=== PATIENT | male | born 1945 | race Hispanic/Latino ===

== ENCOUNTER 2024-06-04 12:32 | Outpatient (CLI) | payer MEDICARE, MEDICAID | END 2024-06-04 12:33 | disposition home or self-care (01) | LOC: CSHWCC 12:32 | PROVIDERS: ATTEND Nurse Practitioner Family | DX: T81.31XD Disruption of external operation (surgical) wound, not elsewhere classified, subsequent encounter (principal); I50.22 Chronic systolic (congestive) heart failure | CPT/HCPCS: 11042 ==

== ENCOUNTER 2024-06-11 12:46 | Outpatient (CLI) | payer MEDICARE, MEDICAID | END 2024-06-11 12:47 | disposition home or self-care (01) | LOC: CSHWCC 12:46 | PROVIDERS: ATTEND Nurse Practitioner Family | DX: T81.31XD Disruption of external operation (surgical) wound, not elsewhere classified, subsequent encounter (principal); I50.22 Chronic systolic (congestive) heart failure | CPT/HCPCS: 11042; G0463; 99212 ==

== ENCOUNTER 2024-06-18 14:20 | Outpatient (CLI) | payer MEDICARE, MEDICAID | END 2024-06-18 14:21 | disposition home or self-care (01) | LOC: CSHWCC 14:20 | PROVIDERS: ATTEND Nurse Practitioner Family | DX: T81.31XD Disruption of external operation (surgical) wound, not elsewhere classified, subsequent encounter (principal); I50.22 Chronic systolic (congestive) heart failure | CPT/HCPCS: 11042; G0463; 99212 ==

== ENCOUNTER 2024-06-26 09:48 | Outpatient (CLI) | payer MEDICARE, MEDICAID | END 2024-06-26 09:49 | disposition home or self-care (01) | LOC: CSHWCC 09:48 | PROVIDERS: ATTEND Nurse Practitioner Family | DX: T81.31XD Disruption of external operation (surgical) wound, not elsewhere classified, subsequent encounter (principal); I50.22 Chronic systolic (congestive) heart failure | CPT/HCPCS: 11042 ==

== ENCOUNTER 2024-07-03 10:56 | Outpatient (CLI) | payer MEDICARE, MEDICAID | END 2024-07-03 10:57 | disposition home or self-care (01) | LOC: CSHWCC 10:56 | PROVIDERS: ATTEND Nurse Practitioner Family | DX: T81.31XD Disruption of external operation (surgical) wound, not elsewhere classified, subsequent encounter (principal); I50.22 Chronic systolic (congestive) heart failure | CPT/HCPCS: 99212; G0463 ==

== ENCOUNTER 2024-07-21 11:53 | Outpatient (CLI) | payer MEDICARE, MEDICAID | END 2024-07-21 11:54 | disposition home or self-care (01) | LOC: CSHWCC 11:53 | PROVIDERS: ATTEND Nurse Practitioner Family | DX: T81.31XD Disruption of external operation (surgical) wound, not elsewhere classified, subsequent encounter (principal); I50.22 Chronic systolic (congestive) heart failure | CPT/HCPCS: 99212; G0463 ==